=== PATIENT | female | born 2000 | race Caucasian/White ===

== ENCOUNTER 2022-06-20 11:01 | Emergency (ER) | payer BC, OTHER ==
[~2022-06-20] VITALS: Ht 160 cm; Wt 107.3 kg
[2022-06-20 11:06] VITALS: BP 185/120
--- NOTE | 2022-06-20 11:15 | NUR ---
PT AMB TO BED 3.
[2022-06-20] MEDS ORDERED: ONDANSETRON 4 MG/2 ML VIAL IVP ONE (11:25)
[2022-06-20] MEDS ORDERED: KETOROLAC 30 MG/ML VIAL IVP ONE (11:25)
[2022-06-20] MEDS ORDERED: NACL 0.9% 1,000 ML IV ONE (11:25)
[2022-06-20] MEDS ORDERED: diphenhydrAMINE 50 MG/ML VIAL IVP ONE (11:25)
--- NOTE | 2022-06-20 11:28 | NUR ---
pt in room 3, c/o headache 7-11/26, denies any trauma, o2 sat 98% ra sr up times 2
--- NOTE | 2022-06-20 11:29 | NUR ---
pt to ct via [facility]
[2022-06-20] MEDS ORDERED: ONDA-188 PO (12:34)
[2022-06-20] MEDS ORDERED: NAPR-54 PO (12:34)
--- NOTE | 2022-06-20 12:45 | NUR ---
feels better about headache, now 2/10, no n/v, a/o times 4, nad.
[2022-06-20 13:12] VITALS: BP 152/87
--- NOTE | 2022-06-20 13:14 | NUR ---
Patient discharged with v/s stable. Written and verbal after care instructions given and explained. Patient verbalized understanding. Ambulatory with steady gait. All questions addressed prior to discharge. Advised to follow up with PMD.
== END 2022-06-20 13:12 | disposition home or self-care (01) ==
LOC: MED 11:01
DX: G43.909 Migraine, unspecified, not intractable, without status migrainosus (principal); Z79.899 Other long term (current) drug therapy
CPT/HCPCS: 70450; 81025; 96361; 96374; 96375; 99285; J1200; J1885; J2405; J7030